=== PATIENT | female | born 1950 | race Asian ===

== ENCOUNTER 2018-11-02 10:36 | Emergency (ER) | payer OTHER ==
[~2018-11-02] VITALS: Ht 147.3 cm; Wt 63.5 kg
--- NOTE | 2018-11-02 10:43 | NUR ---
PT BIB [id number] FROM A BUS STOP, WHERE A BYSTANDER CALLED FOR A POSSIBLE "ALTERED PERSON". PT ARRIVED A RONNIE MCINTYRE, BUT HOSPITAL STAFF WAS ABLE TO FIND AN EMERGENCY CONTACT INFO IN PT'S PERSONAL BELONGINGS. EMERGENCY CONTACT, A WORKER AT [facility] [employer] [facility], INFORMED US OF PT'S NAME. PT IS PRESUMABLY ALTERED DUE TO HYPERVERBAL AND LANGUAGE BARRIER. PT IS DISHEVELED AND UNKEMPT. VSS. NAD NOTED AT THIS TIME.
[2018-11-02 10:55] LABS: BASOPHILS % (AUTO) 0.8 % (0.0-2.0); EOSINOPHILS # (AUTO) 0.2 K/uL (0.0-0.7); EOSINOPHILS % (AUTO) 3.8 % (0.0-7.0); HEMATOCRIT 36.5 % (31.2-41.9); HEMOGLOBIN 11.6 g/dL (10.9-14.3); LYMPHOCYTES # (AUTO) 1.1 K/uL (20.0-40.0); LYMPHOCYTES % (AUTO) 23.7 % (20.5-51.5); MEAN CORPUSCULAR HEMOGLOBIN 22.1 uug (24.7-32.8); MEAN CORPUSCULAR HGB CONC 32 g/dL (32.3-35.6); MEAN CORPUSCULAR VOLUME 69.5 fL (75.5-95.3); MONOCYTES # (AUTO) 0.4 K/uL (2.0-10.0); MONOCYTES % (AUTO) 9.1 % (0.0-11.0); NEUTROPHILS % (AUTO) 62.6 % (38.5-71.5); PLATELET COUNT (AUTO) 240 K/uL (179-408); RED BLOOD CELL COUNT(AUTO) 5.25 MIL/uL (3.63-4.92); WHITE BLOOD COUNT (AUTO) 4.7 K/uL (3.8-11.8)
[2018-11-02 11:02] LABS: EOSINOPHILS % (MANUAL) 4 % (0-8); LYMPHOCYTES % (MANUAL) 24 % (20-40); MONOCYTES % (MANUAL) 9 % (2-10); NEUTROPHILS % (MANUAL) 63 % (42-75)
[2018-11-02 11:09] LABS: CARBON DIOXIDE 25 mmol/L (21-32); CHLORIDE 105 mmol/L (98-107); CREATININE 0.9 mg/dL (0.6-1.3); ETHANOL < 3 MG/DL (0-0); GLUCOSE 109 mg/dL (74-106); POTASSIUM 3.9 mmol/L (3.5-5.1); UREA NITROGEN, BLOOD 19 mg/dL (7-18)
[2018-11-02 11:21] LABS: ALANINE AMINOTRANSFERASE 12 U/L (14-59); ALKALINE PHOSPHATASE 52 U/L (50-136); ASPARTATE AMINOTRANSFERASE 16 U/L (15-37); BILIRUBIN,DIRECT 0.1 mg/dL (0.0-0.2); BILIRUBIN,TOTAL 0.6 mg/dL (0.2-1.0); TOTAL PROTEIN, SERUM 7.1 g/dL (6.4-8.2)
[2018-11-02 11:22] LABS: ACETAMINOPHEN < 2.0 ug/mL (10-30)
--- NOTE | 2018-11-02 11:46 | NUR ---
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 NO OTHER INFORMATION IS AVAILABLE. UNKNOWN MEDICAL HX AND ALLERGY INFORMATION.
--- NOTE | 2018-11-02 12:16 | NUR ---
PAGED EPIC FOR PANEL CALL - AWAITING CALLBACK. ATTEMPT 1.
--- NOTE | 2018-11-02 12:44 | NUR ---
PT ATTEMPTED TO GO AWOL, ESCORTED BACK TO ROOM. PT IS NOW EATING IN HER ROOM. HOSPITAL SECURITY WAS CALLED FOR STANDBY.
--- NOTE | 2018-11-02 12:44 | NUR ---
PT PROVIDED W/ MEAL TRAY.
--- NOTE | 2018-11-02 12:45 | NUR ---
REQUESTED FOR 1:1 SITTER FOR PT SAFETY. HOSPITAL SECURITY AT BEDSIDE FOR 1:1 SAFETY PRECAUTION.
--- NOTE | 2018-11-02 12:50 | NUR ---
TRINA, CHEY Serrato, AT BEDSIDE FOR SS CONSULTATION.
--- NOTE | 2018-11-02 12:54 | NUR ---
12:40pm: SW arrived to the ED for an SS consultation. Patient was brought in my paramedics after a good methodist found her at a nearby bus stop on [facility], talking to herself and cognitively altered. Patient is unable to provide any history, she presents altered and unable to provide even her name. Patient speaks predominantly French, but sometimes Polish, however her speech is disorganized. Patient may possibly be homeless, she appears unkempt and presents with body odor. According to RN Bandar Tinoco, patient had a notebook in her purse with some phone numbers and addresses, which RN attempted to contact. One was a dental office, who stated that patient walks by their office frequently, sometimes comes in and sits in the waiting room. Another one was a [employer] in [place], which told RN that patient comes into the restaurant frequently, and sits in there throughout the day. The [employer] employee was able to provide RN with a name for the patient "Clementina Díaz", however unknown if this is accurate. Case consultation with Dr. Sandoval and Dr. Mehul Tavares, and it was agreed to consult with x ray inspector. SW contacted SS Director Mónica Mcknight for evaluation. SW also contact [employer] [phone] and made a police report to head up operator helper [phone], asking for assistance from police to help identify the patient.
--- NOTE | 2018-11-02 12:55 | NUR ---
ER SPOKE W/ ZHANAN OZUNAW, RE PT'S CARE. LAITH WILL BE IN THE ER FOR PSYCH EVAL.
--- NOTE | 2018-11-02 13:21 | NUR ---
LAITH ADAMS, [facility] [place] DIRECTOR, IN ER FOR PT DASHA.
[2018-11-02] MEDS ORDERED: OLANZAPINE 10 MG VIAL IM ONE ×2 (13:35→13:45)
--- NOTE | 2018-11-02 13:41 | NUR ---
RECEIVED A CALL FROM CAREY, WHO IS AN EMPLOYEE AT THE [employer], STATING HE KNOWS WHO THE PT IS AND WHERE SHE CURRENTLY LIVES. HE ALSO STATED HE KNOWS THE SON, ELVIN, AND WILL TRY AND OBTAIN THE SON'S CONTACT INFORMATION.
[2018-11-02] MEDS ORDERED: IV 1/2NS 1000 ML 1,000 ML IV PRN (13:53)
[2018-11-02] MEDS ORDERED: Z GUARD REMEDY PASTE 57 GM TUBE TOP PRN (14:00)
[2018-11-02] MEDS ORDERED: HYDROCODONE/APAP 5-325MG TABLET PO PRN (14:00)
[2018-11-02] MEDS ORDERED: ACETAMINOPHEN 325 MG TABLET PO PRN (14:00)
[2018-11-02] MEDS ORDERED: ONDANSETRON 4 MG/2 ML VIAL IV PRN (14:00)
[2018-11-02] MEDS ORDERED: MAGNESIUM HYDROXIDE 30 ML LIQUID UDC PO PRN (14:00)
--- NOTE | 2018-11-02 14:36 | NUR ---
BRENT CORTEZ SERIAL #[id number] & MERLENE #[id number] IN ER FOR POSSIBLE MISSING PERSON'S REPORT. OFFICERS WERE ABLE TO IDENTIFY THE PT AND CONFIRM NAME AND ADDRESS IN THE DMV SYSTEM. OFFICERS WILL ATTEMPT TO MAKE A FIELD VISIT AT THE MENTIONED ADDRESS FOR POSSIBLE D/C BACK TO HOME. PT WILL BE ON ER OBSERVATION TILL FURTHER NOTICE.
--- NOTE | 2018-11-02 15:01 | NUR ---
2:05pm: SW arrived to the ED to meet with [employer] officers. [place] [employer] Officer Jesus (serial # [id number]) and Officer José Miguel (serial # [id number]) were meeting with the patient. SW met with the officers, who stated that patient is unable to provide them with any information due to altered mental status and disorganized speech. Officers looked through patient's notebook and ran some information from the notebook in their computer system. Officers were able to identify patient as Clementina Kilgore, 1950, last known address [address] [place] [address]. The officers stated that they will be going to the address to see if they can find any family there, and will then call the hospital back and let ED staff know if they were able to locate anyone. Dr. Sandoval, RN Bandar, and Director Mónica Mcknight informed of above. SW also called the [employer] in [place], where patient goes to frequently (phone number listed in patient's notebook). KAREN spoke with employee Sana who stated that they only know patient's name and that she possibly has a son named Alistair. Sana stated that she, or any other employee, do not know any other contact information for the patient.
--- NOTE | 2018-11-02 15:10 | NUR ---
RECEIVED CALL FROM OFFICER MERLENE W/ THE [employer]. OFFICERS MADE A HOME VISIT BUT WAS UANBLE TO MAKE CONTACT W/ RESIDENTS. PER [employer] OFFICERS, THE HOME ADDRESS OF [address] [place] [address], IS CURRENT AND THE PT CURRENTLY LIVES AT HOME W/ HER AUTISTIC SON, ELVIN. PT'S RECENTLY AND THE PT'S [id number], HERB SOUZA, IS THE POINT OF CONTACT AND THE OFFICERS WERE ABLE TO MAKE CONTACT W/ HERB. WE ARE CURRENTLY AWAITING FOR A CALL FROM HERB SOUZA. PLAN IS TO ADMIT PT IF WE DO NOT HEAR BACK FROM HERB SOUZA W/IN A REASONABLE AMOUNT OF TIME. HERB SOUZA - [phone]
--- NOTE | 2018-11-02 15:16 | NUR ---
SPOKE W/ HERB SOUZA, [id number]. MR. SOUZA IS UNABLE TO COME TO THE HOSPITAL UNTIL TONIGHT. NO ONE IS AT HOME TO SAFELY D/C THE PT. PLAN HAS BEEN MADE W/ ER MD AND HOSPITALIST TO ADMIT THE PT DUE TO AMS.
--- NOTE | 2018-11-02 15:23 | NUR ---
SW informed by MARCIO Portillo that officers called him and informed him that when they got to the patient's home address, there was no one home. Officers stated that they then spoke with patient's neighbors who confirmed that patient lives at the stated address ([address] [place] [address]) with her son, who neighbors state is developmentally disabled. Neighbors also stated that patient's about 1 month ago, and they were able to provide officers with information on patient's [id number], . Officers stated that they have left a voicemail message for Tim. MARCIO Portillo also called Tim and was able to speak with him. Tim stated that he will be able to come to the hospital this evening. SS Director Mónica informed of above. Mónica also called Tim, who informed Mónica that patient has [employer] insurance. registration clerk to follow-up on insurance status. 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
--- NOTE | 2018-11-02 15:51 | NUR ---
KIT MCGREGOR SPEAKING W/ DR. ALVARADO FROM [facility].
--- NOTE | 2018-11-02 16:07 | NUR ---
APS report submitted due to self-neglect and concern over ability to also take care of her developmentally disabled son. APS report # [id number].
[2018-11-02 16:44] LABS: *BILIRUBIN,URIN NEGATIVE (NEGATIVE); *BLOOD, URINE NEGATIVE (NEGATIVE); *CLARITY,URINE CLEAR (CLEAR); *COLOR,URINE YELLOW (YELLOW); *KETONES,URINE NEGATIVE (NEGATIVE); *UROBILINOGEN,URINE 0.2 E.U./dl (NORMAL); LEUKOCYTE ESTERASE ,URINE TRACE (NEGATIVE); NITRITE, URINE NEGATIVE (NEGATIVE); UGLUCOSE NEGATIVE (NEGATIVE)
[2018-11-02 16:54] LABS: WBC,URINE 0-3 /HPF (0-3)
[2018-11-02 16:57] LABS: *AMPHETAMINE, URINE NEGATIVE (NEGATIVE); *BARBITURATE, URINE NEGATIVE (NEGATIVE); *CANNABINOID, URINE NEGATIVE (NEGATIVE); *COCCAINE, URINE NEGATIVE (NEGATIVE); *OPIATE, URINE NEGATIVE (NEGATIVE); *PHENCYCLIDINE SCREEN,URINE NEGATIVE (NEGATIVE)
[2018-11-02 17:00] LABS: CALCIUM OXALATE CRYSTALS,UR FEW /HPF (NONE SEEN)
[2018-11-02 17:01] LABS: SQUAMOUS EPITHELIAL CELL,UR FEW /HPF (NONE SEEN)
--- NOTE | 2018-11-02 18:28 | NUR ---
DOT SOUZA, WHO CLAIMS TO BE THE PT'S [id number], IN ER TO D/C PT IN HER CARE.
--- NOTE | 2018-11-02 18:32 | NUR ---
DOT SOUZA, PT'S [id number], STATES PT'S SON IS CURRENTLY AT WORK AND WAS UNABLE TO COME TO THE HOSPITAL. PT'S SON, ELVIN, IS THE PT'S PRIMARY CARE TAKE PER DOT SOUZA.
--- NOTE | 2018-11-02 18:39 | NUR ---
DOT SOUZA ([id number]) CONTACT INFO [phone]
--- NOTE | 2018-11-02 18:46 | NUR ---
Patient discharged to home in stable conditon. Written and verbal after care instructions given. Patient verbalizes understanding of instructions. ALL BELONGINGS W/ PT. PT SELF-AMBULATED W/O DIFFICULTY. PT D/C UNDER CARE OF DOT SOUZA, [id number].
[2018-11-02 18:47] VITALS: BP 128/72
== END 2018-11-02 18:48 | disposition home or self-care (01) ==
LOC: EDBD 10:39 → ER 10:39
DX: G93.41 Metabolic encephalopathy (principal); R79.89 Other specified abnormal findings of blood chemistry
CPT/HCPCS: 36415; 80048; 80076; 80307; 81000; 81001; 85025; 96372; 99283; G0480 ×2; G0481; A4663; J2358; J7030